=== PATIENT | female | born 1960 | race Caucasian/White ===

== ENCOUNTER → 2020-10-11 | Outpatient (CLI) | payer OTHER ==
--- NOTE | 2020-10-11 16:49 | RAD ---
US DPLX ARTR EXTREM LOWER BILAT, US RIGHT LOWER EXTREMITY ARTERIAL DUPLEX EVAL Indication: Reason: NON HEALING WOUND RT LEG / Spl. Instructions: / History: . Pain Comparison: None. Procedure: Arterial pressures are measured in the arms and ankles. Real-time grayscale, color flow D oppler, and Doppler spectral waveform analysis of the arterial system of the lower extremity is perfo rmed. Findings: Right ankle: 92 mm Hg. Left arm: 135 mm Hg. Right leg FEDER[place]: 0.68. Findings: Monophasic waveforms throughout the right lower extremity. Elevated velocity within the right common femoral artery measures 216 cm/s. Significantly elevated velocity within the mid superficial femoral artery measures 351 cm/s. Peroneal artery not identified. Moderate atheromatous plaque throughout the right lower extremity. Complicated popliteal fossa cyst measures 4.8 x 2.0 cm. IMPRESSION: 1. Moderate to severe right lower extreme peripheral vascular disease. 2. Elevated velocity within the right mid superficial femoral artery and common femoral artery, may indicate 50-75 percent stenosis. 3. Monophasic waveform throughout the right lower extremity. 4. Complicated right popliteal cyst. Electronically signed by: Jakub Montgomery DO (10/11/2020 4:46 PM) [id number]
== END ==
LOC: US 13:51
PROVIDERS: ATTEND Nurse Practitioner Family
DX: S81.801A Unspecified open wound, right lower leg, initial encounter (principal); I73.9 Peripheral vascular disease, unspecified; M71.21 Synovial cyst of popliteal space [Baker], right knee; X58.XXXA Exposure to other specified factors, initial encounter; Y93.89 Activity, other specified; Y92.89 Other specified places as the place of occurrence of the external cause; Y99.8 Other external cause status
CPT/HCPCS: 93922; 93926

== ENCOUNTER → 2021-05-03 | Outpatient (CLI) | payer OTHER ==
--- NOTE | 2021-05-03 13:48 | RAD ---
EXAM: Right lower extremity venous Doppler, venous reflux study. HISTORY: Nonhealing right ankle ulcer. COMPARISON: None. FINDINGS: Grayscale and Doppler analysis of the right lower extremity greater and lesser saphenous sy stems was performed with graded compression and augmentation. No thrombosis is identified. There is no significant reflux within the greater or lesser saphenous sy stems. The greater saphenous vein measures 4.9 mm, 3.5 mm and 3.8 mm in its proximal, mid and distal aspects. The lesser saphenous vein measures 3.2 mm proximally and 2.9 mm distally. At the site of concern at the medial ankle, subcutaneous edema is identified. There is no underlying collection. IMPRESSION: 1. No significant greater or lesser saphenous reflux. Electronically signed by: Nithin Wright MD (05/03/2021 1:46 PM) [id number]
== END ==
LOC: US 12:25
PROVIDERS: ATTEND Preventive Medicine Undersea and Hyperbaric Medicine
DX: I87.1 Compression of vein (principal); L97.211 Non-pressure chronic ulcer of right calf limited to breakdown of skin
CPT/HCPCS: 93971